=== PATIENT | male | born 1985 | race Caucasian/White ===

== ENCOUNTER 2021-03-14 10:41 | Emergency (ER) | payer OTHER, BC ==
[~2021-03-14] VITALS: Ht 175.3 cm; Wt 81.6 kg
[2021-03-14] MEDS ORDERED: TYLENOL # 31 EA PO (13:07)
[2021-03-14 13:14] VITALS: BP 126/75
== END 2021-03-14 13:15 | disposition home or self-care (01) ==
LOC: ER 11:58
DX: S62.314A Displaced fracture of base of fourth metacarpal bone, right hand, initial encounter for closed fracture (principal); X79.XXXA Intentional self-harm by blunt object, initial encounter; Y92.89 Other specified places as the place of occurrence of the external cause; G89.29 Other chronic pain
CPT/HCPCS: 99284